=== PATIENT | male | born 1970 | race Caucasian/White ===

== ENCOUNTER → 2021-04-06 | Outpatient (CLI) | payer OTHER | LOC: WOUNDCARE 09:18 | PROVIDERS: ATTEND Nurse Practitioner | DX: I87.312 Chronic venous hypertension (idiopathic) with ulcer of left lower extremity (principal); L97.822 Non-pressure chronic ulcer of other part of left lower leg with fat layer exposed; L97.222 Non-pressure chronic ulcer of left calf with fat layer exposed; I89.0 Lymphedema, not elsewhere classified; M72.6 Necrotizing fasciitis; Z98.890 Other specified postprocedural states; Z79.899 Other long term (current) drug therapy ==

== ENCOUNTER → 2021-04-13 | Outpatient (CLI) | payer OTHER | LOC: WOUNDCARE 01:32 | PROVIDERS: ATTEND Nurse Practitioner | DX: I87.312 Chronic venous hypertension (idiopathic) with ulcer of left lower extremity (principal); L97.822 Non-pressure chronic ulcer of other part of left lower leg with fat layer exposed; L97.222 Non-pressure chronic ulcer of left calf with fat layer exposed; I89.0 Lymphedema, not elsewhere classified; M72.6 Necrotizing fasciitis; Z98.890 Other specified postprocedural states; Z79.899 Other long term (current) drug therapy ==

== ENCOUNTER → 2021-09-29 | Outpatient (CLI) | payer OTHER | LOC: WOUNDCARE 10:40 | PROVIDERS: ATTEND Nurse Practitioner Family | DX: E11.622 Type 2 diabetes mellitus with other skin ulcer (principal); L97.822 Non-pressure chronic ulcer of other part of left lower leg with fat layer exposed; I87.8 Other specified disorders of veins; I10 Essential (primary) hypertension; M72.6 Necrotizing fasciitis; Z86.39 Personal history of other endocrine, nutritional and metabolic disease; Z98.890 Other specified postprocedural states; Z79.899 Other long term (current) drug therapy ==

== ENCOUNTER → 2021-10-06 | Outpatient (CLI) | payer OTHER | LOC: WOUNDCARE 00:41 | PROVIDERS: ATTEND Nurse Practitioner Family | DX: E11.622 Type 2 diabetes mellitus with other skin ulcer (principal); L97.822 Non-pressure chronic ulcer of other part of left lower leg with fat layer exposed; I87.8 Other specified disorders of veins; I10 Essential (primary) hypertension; M72.6 Necrotizing fasciitis; Z98.890 Other specified postprocedural states; Z79.899 Other long term (current) drug therapy ==